=== PATIENT | female | born 1995 | race American Indian/Alaskan Native ===

== ENCOUNTER 2018-02-12 10:05 | Outpatient (CLI) | payer MEDICAID ==
[2018-02-12 10:34] VITALS: BP 123/71
--- NOTE | 2018-02-12 11:55 | Ultrasound Report ---
ULTRASOUND OB LIMITED History: well being, rule out rupture of membranes Technique: Transabdominal ultrasound with Doppler interrogation. Gestation: Single Position: Cephalic Amniotic Fluid: Normal TALIB = 21.2 cm Heart Rate: 131 BPM
== END 2018-02-12 11:30 | disposition home or self-care (01) ==
LOC: TRG 10:05
PROVIDERS: ATTEND Obstetrics & Gynecology
DX: O47.03 False labor before 37 completed weeks of gestation, third trimester (principal); Z3A.37 37 weeks gestation of pregnancy
CPT/HCPCS: 59025; 76815

== ENCOUNTER 2019-02-01 09:45 | Emergency (ER) | payer SELFPAY ==
[2019-02-01 09:53] VITALS: BP 119/73
[2019-02-01] MEDS ORDERED: BICILLIN L-A IM ONE (10:12)
--- NOTE | 2019-02-01 10:44 | Emergency Department Report ---
ED General Adult HPI - General Chief complaint: Sore Throat Stated complaint: SORE THROAT Time Seen by Provider: 02/01/19 10:07 Source: patient Mode of arrival: Ambulatory Limitations: No Limitations - History of Present Illness Initial comments: Patient is a 23-year-old [place] female who is here for 2 issues. Issue #1 is that the patient has a sore throat. Patient's had pain with swallowing for approximately one week. Patient has had fevers and chills. She denies cough conjunctivitis or congestion. Patient states she noticed some white patches on her tonsils bilaterally this week. Patient has 5 children his had exposures to daycare. Patient also states that she's having some pain over the last several weeks at her scar. Patient's last was 02/13/2018. Scars well-healed and not having any drainage however she has some tenderness along the scar mostly on the left lateral edge. She states is throbbing sensation. She has worsening pain after defecation has noticed no blood in her stools. States she has some urinary frequency but no dysuria. She denies abnormal vaginal bleeding or vaginal discharge. - Related Data Home Medications Medication Instructions Recorded Confirmed Last Taken Pnv with Ca,No.72/Iron/FA 1 tab PO DAILY 11/12/14 02/13/18 1 Day Ago [ Plus Tablet] ~12/13/14 1 tab Previous Rx's Medication Instructions Recorded Last Taken Type oxyCODONE /ACETAMINOPHEN [Percocet 1 tab PO Q6HR PRN #30 tablet 12/13/14 Unknown Rx 5/325 mg] Ferrous Sulfate [Feosol 325 MG tab] 325 mg PO BID #90 tablet 12/15/14 Unknown Rx Ibuprofen [Motrin 600 MG tab] 600 mg PO Q6HR PRN #30 tablet 12/15/14 Unknown Rx Acetaminophen/Codeine [Tylenol #3] 1 tab PO Q6H PRN #20 tab 05/09/15 Unknown Rx Ibuprofen [Motrin 800 MG tab] 800 mg PO Q8HR PRN #30 tablet 05/09/15 Unknown Rx Sulfamethoxazole/Trimethoprim 1 each PO BID #20 tablet 05/09/15 Unknown Rx [Bactrim DS TAB] Ibuprofen [Motrin 600 MG tab] 600 mg PO Q8H PRN #30 tablet 02/27/16 Unknown Rx Multivitamin with Iron 1 each PO DAILY #30 tablet 02/27/16 Unknown Rx [Multivitamins with Iron] oxyCODONE /ACETAMINOPHEN [Percocet 1 tab PO Q6HR PRN #30 tablet 02/27/16 Unknown Rx 5/325] Ferrous Sulfate [Feosol 325 MG tab] 325 mg PO BID #60 tablet 03/04/17 Unknown Rx Ibuprofen [Motrin] 800 mg PO Q8HR PRN #30 tablet 03/04/17 Unknown Rx oxyCODONE /ACETAMINOPHEN [Percocet 1 tab PO Q6HR PRN #30 tablet 03/04/17 Unknown Rx 5/325] Ferrous Sulfate [Feosol 325 MG tab] 325 mg PO BID #60 tablet 02/13/18 Unknown Rx Ibuprofen [Motrin] 800 mg PO Q8HR PRN #30 tablet 02/13/18 Unknown Rx oxyCODONE /ACETAMINOPHEN [Percocet 1 tab PO Q6HR PRN #40 tablet 02/13/18 Unknown Rx 5/325] Ibuprofen [Motrin 600 MG tab] 600 mg PO Q8H PRN #20 tablet 02/01/19 Unknown Rx Nitrofurantoin [place]/M-Cryst 100 mg PO Q12HR #14 capsule 02/01/19 Unknown Rx [Macrobid CAP] traMADol [Ultram] 50 mg PO Q6HR PRN #12 tablet 02/01/19 Unknown Rx Allergies Allergy/AdvReac Type Severity Reaction Status Date / Time No Known Allergies Allergy Verified 02/11/13 02:27 ED Review of Systems ROS: Stated complaint: SORE THROAT Other details as noted in HPI Comment: All other systems reviewed and negative ED Past Medical Hx - Past Medical History Previous Medical History?: Yes Hx Hypertension: No Hx Congestive Heart Failure: No Hx Diabetes: No Hx Deep Vein Thrombosis: No Hx Renal Disease: No Hx Sickle Cell Disease: No Hx Seizures: No Hx Asthma: No Hx COPD: No Hx HIV: No Additional medical history: Vaginal x 2 - Surgical History Past Surgical History?: Yes Additional Surgical History: x 3 - Social History Smoking Status: Never Smoker Substance Use Type: Marijuana, Prescribed - Medications Home Medications: Home Medications Medication Instructions Recorded Confirmed Last Taken Type Pnv with Ca,No.72/Iron/FA 1 tab PO DAILY 11/12/14 02/13/18 1 Day Ago History [ Plus Tablet] ~12/13/14 1 tab oxyCODONE /ACETAMINOPHEN [Percocet 1 tab PO Q6HR PRN #30 tablet 12/13/14 02/13/18 Unknown Rx 5/325 mg] Ferrous Sulfate [Feosol 325 MG tab] 325 mg PO BID #90 tablet 12/15/14 02/13/18 Unknown Rx Ibuprofen [Motrin 600 MG tab] 600 mg PO Q6HR PRN #30 tablet 12/15/14 02/13/18 Unknown Rx Acetaminophen/Codeine [Tylenol #3] 1 tab PO Q6H PRN #20 tab 05/09/15 02/13/18 Unknown Rx Ibuprofen [Motrin 800 MG tab] 800 mg PO Q8HR PRN #30 tablet 05/09/15 02/13/18 Unknown Rx Sulfamethoxazole/Trimethoprim 1 each PO BID #20 tablet 05/09/15 02/13/18 Unknown Rx [Bactrim DS TAB] Ibuprofen [Motrin 600 MG tab] 600 mg PO Q8H PRN #30 tablet 02/27/16 02/13/18 Unknown Rx Multivitamin with Iron 1 each PO DAILY #30 tablet 02/27/16 02/13/18 Unknown Rx [Multivitamins with Iron] oxyCODONE /ACETAMINOPHEN [Percocet 1 tab PO Q6HR PRN #30 tablet 02/27/16 02/13/18 Unknown Rx 5/325] Ferrous Sulfate [Feosol 325 MG tab] 325 mg PO BID #60 tablet 03/04/17 02/13/18 Unknown Rx Ibuprofen [Motrin] 800 mg PO Q8HR PRN #30 tablet 03/04/17 02/13/18 Unknown Rx oxyCODONE /ACETAMINOPHEN [Percocet 1 tab PO Q6HR PRN #30 tablet 03/04/17 02/13/18 Unknown Rx 5/325] Ferrous Sulfate [Feosol 325 MG tab] 325 mg PO BID #60 tablet 02/13/18 Unknown Rx Ibuprofen [Motrin] 800 mg PO Q8HR PRN #30 tablet 02/13/18 Unknown Rx oxyCODONE /ACETAMINOPHEN [Percocet 1 tab PO Q6HR PRN #40 tablet 02/13/18 Unknown Rx 5/325] Ibuprofen [Motrin 600 MG tab] 600 mg PO Q8H PRN #20 tablet 02/01/19 Unknown Rx Nitrofurantoin [place]/M-Cryst 100 mg PO Q12HR #14 capsule 02/01/19 Unknown Rx [Macrobid CAP] traMADol [Ultram] 50 mg PO Q6HR PRN #12 tablet 02/01/19 Unknown Rx ED Physical Exam - General Limitations: No Limitations General appearance: alert, in no apparent distress - Head Head exam: Present: atraumatic, normocephalic - Eye Eye exam: Present: normal appearance - ENT ENT exam: Present: mucous membranes moist. Absent: normal orophraynx - Expanded ENT Exam Expanded Mouth exam: Present: normal external inspection. Absent: drooling, trismus, muffled voice Throat exam: Positive: tonsillar erythema, tonsillomegaly, tonsillar exudate - Neck Neck exam: Present: normal inspection, lymphadenopathy (anterior cervical lymphadenopathy is present) - Respiratory Respiratory exam: Present: normal lung sounds bilaterally. Absent: respiratory distress, wheezes, rales, rhonchi - Cardiovascular Cardiovascular Exam: Present: regular rate, normal rhythm. Absent: systolic murmur, diastolic murmur, rubs, gallop - GI/Abdominal GI/Abdominal exam: Present: soft, tenderness (patient has some mild tenderness on palpation to the left lateral edge of her section scar. Scars well healed. There is no overlying erythema. No fluctuance is present.), normal bowel sounds. Absent: distended, guarding, rebound - Extremities Exam Extremities exam: Present: normal inspection - Back Exam Back exam: Present: normal inspection - Neurological Exam Neurological exam: Present: alert, oriented X3 - Psychiatric Psychiatric exam: Present: normal affect, normal mood - Skin Skin exam: Present: warm, dry, intact, normal color. Absent: rash ED Course Vital Signs 02/01/19 09:47 Temperature 98.7 F Pulse Rate 87 Respiratory 20 Rate Blood Pressure 119/73 O2 Sat by Pulse 100 Oximetry - Reevaluation(s) Reevaluation #1: 02/01/19 10:43 Patient meets [facility] criteria for empiric treatment with antibiotics for her pharyngitis. Patient was given a shot of Bicillin. Regarding the patient's lower abdominal pain. Patient had one ovary removed during her last section for unknown reasons however she still has a ovary on the left side. Patient will have a urinalysis and a test for. Prior to tests helped delineate whether the patient is a at risk for ectopic . ED Medical Decision Making - Lab Data Lab Results 02/01/19 Range/Units 10:19 Urine Color Yellow (Yellow) Urine Turbidity Slightly-cloudy (Clear) Urine pH 6.0 (5.0-7.0) Ur Specific [place] 1.021 (1.003-1.030) Urine Protein 100 mg/dl (Negative) mg/dL Urine Glucose (UA) Neg (Negative) mg/dL Urine Ketones Neg (Negative) mg/dL Urine Blood Neg (Negative) Urine Nitrite Pos (Negative) Urine Bilirubin Neg (Negative) Urine Urobilinogen 4.0 (<2.0) mg/dL Ur Leukocyte Esterase Tr (Negative) Urine WBC (Auto) 6.0 (0.0-6.0) /HPF Urine RBC (Auto) 4.0 (0.0-6.0) /HPF U Epithel Cells (Auto) 10.0 (0-13.0) /HPF Urine Bacteria (Auto) 4+ (Negative) /HPF Urine Mucus 2+ /HPF Urine HCG, Qual Negative (Negative) - Medical Decision Making Patient's urinalysis shows she does have some bacteria present and is nitrite positive. Patient be started on Macrobid. Patient's pharyngitis is been addressed. Patient be sent home with medications for symptomatic relief as well. Critical care attestation.: If time is entered above; I have spent that time in minutes in the direct care of this critically ill patient, excluding procedure time. ED Disposition Clinical Impression: Exudative pharyngitis, Acute cystitis Disposition: - TO HOME OR SELFCARE Is pt being admited?: No Does the pt Need Aspirin: No Condition: Stable Instructions: Pharyngitis (ED), Urinary Tract Infection in Women (ED) Referrals: PRIMARY CARE, [Primary Care Provider] - 3-5 Days Time of Disposition: 10:52
[2019-02-01 10:45] LABS: Bacteria,Urine 4+ /HPF (Negative); Bilirubin,Urine NEG (Negative); Blood,Urine NEG (Negative); Color,Urine Yellow (Yellow); Mucus,Urine 2+ /HPF
[2019-02-01 10:46] LABS: HCG Qualitative,Urine Negative (Negative)
== END 2019-02-01 10:59 | disposition home or self-care (01) ==
LOC: ED 09:45
DX: N30.00 Acute cystitis without hematuria (principal); J02.9 Acute pharyngitis, unspecified; F12.10 Cannabis abuse, uncomplicated; Z79.899 Other long term (current) drug therapy
CPT/HCPCS: 81001; 81025; 96372; 99283; J0561

== ENCOUNTER 2019-03-30 02:56 | Emergency (ER) | payer SELFPAY ==
[2019-03-30] MEDS ORDERED: AMOXICILLIN/K CLAV 875/125MG TAB PO ONE (04:09)
[2019-03-30] MEDS ORDERED: IBUPROFEN 800 MG TAB PO ONE (04:09)
--- NOTE | 2019-03-30 05:00 | Emergency Department Report ---
ED ENT HPI - General Chief complaint: Dental/Oral Stated complaint: TOOTHACHE Time Seen by Provider: 03/30/19 03:52 Source: patient Mode of arrival: Ambulatory Limitations: No Limitations - History of Present Illness Initial comments: Mrs. Pedroza is a 24-year-old female who presents with dental pain , 10/29. Patient has history of dental caries to 29&30. States increased pain this week and has been unable to see dentist there is gum erythema no gum or facial swelling. No throat or ear pain patient is tolerating by mouth intake on other side. There is no fever or chills. MD complaint: tooth pain - Related Data Home Medications Medication Instructions Recorded Confirmed Last Taken Pnv with Ca,No.72/Iron/FA 1 tab PO DAILY 11/12/14 02/13/18 1 Day Ago [ Plus Tablet] ~12/13/14 1 tab Previous Rx's Medication Instructions Recorded Last Taken Type oxyCODONE /ACETAMINOPHEN [Percocet 1 tab PO Q6HR PRN #30 tablet 12/13/14 Unknown Rx 5/325 mg] Ferrous Sulfate [Feosol 325 MG tab] 325 mg PO BID #90 tablet 12/15/14 Unknown Rx Ibuprofen [Motrin 600 MG tab] 600 mg PO Q6HR PRN #30 tablet 12/15/14 Unknown Rx Acetaminophen/Codeine [Tylenol #3] 1 tab PO Q6H PRN #20 tab 05/09/15 Unknown Rx Ibuprofen [Motrin 800 MG tab] 800 mg PO Q8HR PRN #30 tablet 05/09/15 Unknown Rx Sulfamethoxazole/Trimethoprim 1 each PO BID #20 tablet 05/09/15 Unknown Rx [Bactrim DS TAB] Ibuprofen [Motrin 600 MG tab] 600 mg PO Q8H PRN #30 tablet 02/27/16 Unknown Rx Multivitamin with Iron 1 each PO DAILY #30 tablet 02/27/16 Unknown Rx [Multivitamins with Iron] oxyCODONE /ACETAMINOPHEN [Percocet 1 tab PO Q6HR PRN #30 tablet 02/27/16 Unknown Rx 5/325] Ferrous Sulfate [Feosol 325 MG tab] 325 mg PO BID #60 tablet 03/04/17 Unknown Rx Ibuprofen [Motrin] 800 mg PO Q8HR PRN #30 tablet 03/04/17 Unknown Rx oxyCODONE /ACETAMINOPHEN [Percocet 1 tab PO Q6HR PRN #30 tablet 03/04/17 Unknown Rx 5/325] Ferrous Sulfate [Feosol 325 MG tab] 325 mg PO BID #60 tablet 02/13/18 Unknown Rx Ibuprofen [Motrin] 800 mg PO Q8HR PRN #30 tablet 02/13/18 Unknown Rx oxyCODONE /ACETAMINOPHEN [Percocet 1 tab PO Q6HR PRN #40 tablet 02/13/18 Unknown Rx 5/325] Ibuprofen [Motrin 600 MG tab] 600 mg PO Q8H PRN #20 tablet 02/01/19 Unknown Rx Nitrofurantoin [place]/M-Cryst 100 mg PO Q12HR #14 capsule 02/01/19 Unknown Rx [Macrobid CAP] traMADoL [Ultram] 50 mg PO Q6HR PRN #12 tablet 02/01/19 Unknown Rx Amoxicillin [Trimox CAP] 500 mg PO Q8H 10 Days #30 capsule 03/30/19 Unknown Rx Chlorhexidine Mouthwash [Peridex] 15 ml MM BID #1 bottle 03/30/19 Unknown Rx traMADoL [Ultram] 50 mg PO Q6HR PRN #12 tablet 03/30/19 Unknown Rx Allergies Allergy/AdvReac Type Severity Reaction Status Date / Time No Known Allergies Allergy Verified 02/11/13 02:27 ED Dental HPI - General Chief complaint: Dental/Oral Stated complaint: TOOTHACHE Time Seen by Provider: 03/30/19 03:52 Source: patient Mode of arrival: Ambulatory Limitations: No Limitations - Related Data Home Medications Medication Instructions Recorded Confirmed Last Taken Pnv with Ca,No.72/Iron/FA 1 tab PO DAILY 11/12/14 02/13/18 1 Day Ago [ Plus Tablet] ~12/13/14 1 tab Previous Rx's Medication Instructions Recorded Last Taken Type oxyCODONE /ACETAMINOPHEN [Percocet 1 tab PO Q6HR PRN #30 tablet 12/13/14 Unknown Rx 5/325 mg] Ferrous Sulfate [Feosol 325 MG tab] 325 mg PO BID #90 tablet 12/15/14 Unknown Rx Ibuprofen [Motrin 600 MG tab] 600 mg PO Q6HR PRN #30 tablet 12/15/14 Unknown Rx Acetaminophen/Codeine [Tylenol #3] 1 tab PO Q6H PRN #20 tab 05/09/15 Unknown Rx Ibuprofen [Motrin 800 MG tab] 800 mg PO Q8HR PRN #30 tablet 05/09/15 Unknown Rx Sulfamethoxazole/Trimethoprim 1 each PO BID #20 tablet 05/09/15 Unknown Rx [Bactrim DS TAB] Ibuprofen [Motrin 600 MG tab] 600 mg PO Q8H PRN #30 tablet 02/27/16 Unknown Rx Multivitamin with Iron 1 each PO DAILY #30 tablet 02/27/16 Unknown Rx [Multivitamins with Iron] oxyCODONE /ACETAMINOPHEN [Percocet 1 tab PO Q6HR PRN #30 tablet 02/27/16 Unknown Rx 5/325] Ferrous Sulfate [Feosol 325 MG tab] 325 mg PO BID #60 tablet 03/04/17 Unknown Rx Ibuprofen [Motrin] 800 mg PO Q8HR PRN #30 tablet 03/04/17 Unknown Rx oxyCODONE /ACETAMINOPHEN [Percocet 1 tab PO Q6HR PRN #30 tablet 03/04/17 Unknown Rx 5/325] Ferrous Sulfate [Feosol 325 MG tab] 325 mg PO BID #60 tablet 02/13/18 Unknown Rx Ibuprofen [Motrin] 800 mg PO Q8HR PRN #30 tablet 02/13/18 Unknown Rx oxyCODONE /ACETAMINOPHEN [Percocet 1 tab PO Q6HR PRN #40 tablet 02/13/18 Unknown Rx 5/325] Ibuprofen [Motrin 600 MG tab] 600 mg PO Q8H PRN #20 tablet 02/01/19 Unknown Rx Nitrofurantoin [place]/M-Cryst 100 mg PO Q12HR #14 capsule 02/01/19 Unknown Rx [Macrobid CAP] traMADoL [Ultram] 50 mg PO Q6HR PRN #12 tablet 02/01/19 Unknown Rx Amoxicillin [Trimox CAP] 500 mg PO Q8H 10 Days #30 capsule 03/30/19 Unknown Rx Chlorhexidine Mouthwash [Peridex] 15 ml MM BID #1 bottle 03/30/19 Unknown Rx traMADoL [Ultram] 50 mg PO Q6HR PRN #12 tablet 03/30/19 Unknown Rx Allergies Allergy/AdvReac Type Severity Reaction Status Date / Time No Known Allergies Allergy Verified 02/11/13 02:27 ED Review of Systems ROS: Stated complaint: TOOTHACHE Other details as noted in HPI Constitutional: denies: chills, fever Eyes: denies: eye pain, eye discharge, vision change ENT: dental pain. denies: ear pain, throat pain Respiratory: denies: cough, shortness of breath, wheezing Cardiovascular: denies: chest pain, palpitations Endocrine: no symptoms reported Gastrointestinal: denies: abdominal pain, nausea, diarrhea Genitourinary: denies: urgency, dysuria, discharge Musculoskeletal: denies: back pain, joint swelling, arthralgia Skin: denies: rash, lesions Neurological: denies: headache, weakness, paresthesias Psychiatric: denies: anxiety, depression Hematological/Lymphatic: denies: easy bleeding, easy bruising ED Past Medical Hx - Past Medical History Previous Medical History?: No Hx Hypertension: No Hx Congestive Heart Failure: No Hx Diabetes: No Hx Deep Vein Thrombosis: No Hx Renal Disease: No Hx Sickle Cell Disease: No Hx Seizures: No Hx Asthma: No Hx COPD: No Hx HIV: No Additional medical history: Vaginal x 2 - Surgical History Past Surgical History?: Yes Additional Surgical History: x 3 - Social History Smoking Status: Never Smoker Substance Use Type: None - Medications Home Medications: Home Medications Medication Instructions Recorded Confirmed Last Taken Type Pnv with Ca,No.72/Iron/FA 1 tab PO DAILY 11/12/14 02/13/18 1 Day Ago History [ Plus Tablet] ~12/13/14 1 tab oxyCODONE /ACETAMINOPHEN [Percocet 1 tab PO Q6HR PRN #30 tablet 12/13/14 02/13/18 Unknown Rx 5/325 mg] Ferrous Sulfate [Feosol 325 MG tab] 325 mg PO BID #90 tablet 12/15/14 02/13/18 Unknown Rx Ibuprofen [Motrin 600 MG tab] 600 mg PO Q6HR PRN #30 tablet 12/15/14 02/13/18 Unknown Rx Acetaminophen/Codeine [Tylenol #3] 1 tab PO Q6H PRN #20 tab 05/09/15 02/13/18 Unknown Rx Ibuprofen [Motrin 800 MG tab] 800 mg PO Q8HR PRN #30 tablet 05/09/15 02/13/18 Unknown Rx Sulfamethoxazole/Trimethoprim 1 each PO BID #20 tablet 05/09/15 02/13/18 Unknown Rx [Bactrim DS TAB] Ibuprofen [Motrin 600 MG tab] 600 mg PO Q8H PRN #30 tablet 02/27/16 02/13/18 Unknown Rx Multivitamin with Iron 1 each PO DAILY #30 tablet 02/27/16 02/13/18 Unknown Rx [Multivitamins with Iron] oxyCODONE /ACETAMINOPHEN [Percocet 1 tab PO Q6HR PRN #30 tablet 02/27/16 02/13/18 Unknown Rx 5/325] Ferrous Sulfate [Feosol 325 MG tab] 325 mg PO BID #60 tablet 03/04/17 02/13/18 Unknown Rx Ibuprofen [Motrin] 800 mg PO Q8HR PRN #30 tablet 03/04/17 02/13/18 Unknown Rx oxyCODONE /ACETAMINOPHEN [Percocet 1 tab PO Q6HR PRN #30 tablet 03/04/17 02/13/18 Unknown Rx 5/325] Ferrous Sulfate [Feosol 325 MG tab] 325 mg PO BID #60 tablet 02/13/18 Unknown Rx Ibuprofen [Motrin] 800 mg PO Q8HR PRN #30 tablet 02/13/18 Unknown Rx oxyCODONE /ACETAMINOPHEN [Percocet 1 tab PO Q6HR PRN #40 tablet 02/13/18 Unknown Rx 5/325] Ibuprofen [Motrin 600 MG tab] 600 mg PO Q8H PRN #20 tablet 02/01/19 Unknown Rx Nitrofurantoin [place]/M-Cryst 100 mg PO Q12HR #14 capsule 02/01/19 Unknown Rx [Macrobid CAP] traMADoL [Ultram] 50 mg PO Q6HR PRN #12 tablet 02/01/19 Unknown Rx Amoxicillin [Trimox CAP] 500 mg PO Q8H 10 Days #30 capsule 03/30/19 Unknown Rx Chlorhexidine Mouthwash [Peridex] 15 ml MM BID #1 bottle 03/30/19 Unknown Rx traMADoL [Ultram] 50 mg PO Q6HR PRN #12 tablet 03/30/19 Unknown Rx ED Physical Exam - General Limitations: No Limitations General appearance: alert, in no apparent distress - Head Head exam: Present: atraumatic, normocephalic - Eye Eye exam: Present: normal appearance, PERRL, EOMI - ENT ENT exam: Present: mucous membranes moist, TM's normal bilaterally, normal external ear exam - Expanded ENT Exam Expanded Teeth exam: Present: dental caries, dental tenderness # (29) Throat exam: Positive: normal inspection. Negative: tonsillar erythema, tonsillomegaly, tonsillar exudate, R peritonsillar mass, L peritonsillar mass - Neck Neck exam: Present: normal inspection, full ROM. Absent: tenderness, lymphadenopathy - Respiratory Respiratory exam: Present: normal lung sounds bilaterally. Absent: respiratory distress, wheezes, stridor - Cardiovascular Cardiovascular Exam: Present: regular rate, normal rhythm. Absent: systolic murmur, diastolic murmur, rubs, gallop - GI/Abdominal GI/Abdominal exam: Present: soft, normal bowel sounds. Absent: distended, tenderness, bruit, hernia - Rectal Rectal exam: Present: deferred - Extremities Exam Extremities exam: Present: normal inspection - Back Exam Back exam: Present: normal inspection, full ROM. Absent: tenderness, rash noted - Neurological Exam Neurological exam: Present: alert, oriented X3, CN II-XII intact, normal gait - Psychiatric Psychiatric exam: Present: normal affect, normal mood - Skin Skin exam: Present: warm, dry, intact, normal color. Absent: rash ED Course Vital Signs 03/30/19 03/30/19 02:59 04:33 Temperature 98.4 F Pulse Rate 101 H Respiratory 18 20 Rate Blood Pressure 148/86 O2 Sat by Pulse 100 Oximetry ED Medical Decision Making - Medical Decision Making this is straight forward dental carries. plan: follow up with dentist in 1-2 days, will dc with rx for amoxicillin, ultram, peridex. pt given referral to [facility]. pt dc'd in stable condition at this time. Critical care attestation.: If time is entered above; I have spent that time in minutes in the direct care of this critically ill patient, excluding procedure time. ED Disposition Clinical Impression: Infected dental carries Disposition: DC-01 TO HOME OR SELFCARE Is pt being admited?: No Does the pt Need Aspirin: No Condition: Stable Instructions: Dental Caries (ED) Prescriptions: Chlorhexidine Mouthwash [Peridex] 15 ml MM BID #1 bottle Amoxicillin [Trimox CAP] 500 mg PO Q8H 10 Days #30 capsule traMADoL [Ultram] 50 mg PO Q6HR PRN #12 tablet PRN Reason: Pain Referrals: PRIMARY CARE,MD [Primary Care Provider] - 3-5 Days Forms: Work/School Release Form(ED) Time of Disposition: 05:05
[2019-03-30 05:26] VITALS: BP 124/75
== END 2019-03-30 05:26 | disposition home or self-care (01) ==
LOC: ED 02:56
DX: K02.9 Dental caries, unspecified (principal); Z79.899 Other long term (current) drug therapy

== ENCOUNTER 2019-06-29 04:03 | Emergency (ER) | payer SELFPAY ==
[2019-06-29 07:01] VITALS: BP 116/74
[2019-06-29] MEDS ORDERED: IBUPROFEN 800 MG TAB PO ONE (07:58)
[2019-06-29] MEDS ORDERED: CLINDAMYCIN 300 MG CAP PO ONE (07:58)
--- NOTE | 2019-06-29 08:09 | Emergency Department Report ---
Chief Complaint: Dental/Oral Stated Complaint: TOOTHACHE EXTREME PAIN Time Seen by Provider: 06/29/19 07:35 - HPI History of Present Illness: The patient is a 24-year-old female who presents to ED complaining of pain in the right side of her mouth x 3 days . Patient states that the pain started 3 days ago and has increased in severity over the last 2 days. The pain is exacerbated by eating and opening of the mouth. Patient states the pain is alleviated initially with pain medication but comes back. Patient describes a as a throbbing, pressure-like sensation. Patient states otherwise well and has no other complaints. Patient has had no fevers and no chills. No chest pain, no shortness of breath. No abdominal pain. No shortness of breath or recent trauma or swelling to the face. - ROS Review of Systems: As noted in HPI - Exam Vital Signs: Vital Signs 06/29/19 06/29/19 04:07 07:00 Temperature 99.0 F Pulse Rate 64 68 Respiratory 18 16 Rate Blood Pressure 135/67 Blood Pressure 116/74 [Right] O2 Sat by Pulse 100 100 Oximetry Physical Exam: GENERAL: Alert and oriented x3, no apparent distress, Normal Gait, atraumatic. MOUTH:Mouth is well hydrated and without lesions. Tonsils nonerythematous or swollen, Uvula midline, Tongue not elevated. Mucous membranes are moist. Posterior pharynx clear, no exudate or lesions. Patent airways. Dental caries and partially missing tooth of numbers 28 and 29, no gingival swelling, redness or puslike discharge NECK: Supple. Non edematous, No lymphadenopathy or thyromegaly. No C-spine tenderness NEUROLOGIC: The patient is cooperative with no focal neurologic deficits. Cranial nerves II through XII are grossly intact. Normal speech. SKIN: Warm and dry, No lesions, No ulceration or induration present. MSE screening note: Focused history and physical exam performed. Due to findings the following was ordered: ED Disposition for MSE Clinical Impression: Dental caries, Pain, dental Disposition: Z- MED SCREENING EXAM-LEFT Is pt being admited?: No Does the pt Need Aspirin: No Condition: Stable Instructions: Toothache (ED), Dental Caries (ED) Additional Instructions: Make sure to follow up with the dentist as discussed. Take your medications as you've been prescribed. If you have any worsening symptoms or develop new symptoms please return to ED immediately. Prescriptions: Amoxicillin [Trimox CAP] 500 mg PO Q8H 10 Days #30 capsule Acetaminophen/Codeine [Tylenol /Codeine # 3 tab] 1 tab PO Q6H PRN #10 tab PRN Reason: pain Referrals: PRIMARY CARE,MD [Primary Care Provider] - 3-5 Days [facility] [Outside] - 3-5 Days [facility] [Outside] - 3-5 Days [facility] [Outside] - 3-5 Days Forms: Work/School Release Form(ED) Time of Disposition: 08:13
== END 2019-06-29 08:25 | disposition left against medical advice (07) ==
LOC: ED 04:03
DX: K02.9 Dental caries, unspecified (principal)
CPT/HCPCS: 99282

== ENCOUNTER 2020-08-08 08:06 | Emergency (ER) | payer SELFPAY ==
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
[2020-08-08 12:30] VITALS: BP 134/69
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
== END 2020-08-08 13:00 | disposition left against medical advice (07) ==
LOC: ED 08:06
DX: M79.642 Pain in left hand (principal); R51.9 Headache, unspecified; M54.2 Cervicalgia; Y08.89XA Assault by other specified means, initial encounter; Y93.89 Activity, other specified; Y92.89 Other specified places as the place of occurrence of the external cause; Y99.8 Other external cause status
CPT/HCPCS: 99283